=== PATIENT | male | born 1970 | race African-American/Black ===

== ENCOUNTER 2022-06-27 13:12 | Outpatient (REF) | payer OTHER, SELFPAY ==
[2022-06-27 14:58] LABS: Estimated Glomerular Filt Rate > 60; Uric Acid 5.3 mg/dL (3.4-7.0)
== END 2022-06-27 13:13 | disposition home or self-care (01) ==
LOC: HO.LAB 13:12
PROVIDERS: PCP Internal Medicine; Visit Provider Internal Medicine Rheumatology
DX: M10.9 Gout, unspecified (principal); Z79.899 Other long term (current) drug therapy
CPT/HCPCS: 36415; 82565; 84550

== ENCOUNTER 2023-10-19 14:26 | Outpatient (AMB) | payer OTHER, SELFPAY ==
--- NOTE | 2023-10-19 14:28 | MHC.OFFVIS ---
Vital Signs 10/19/23 14:29 Height 6 ft 1.5 in Weight 262 lb 5.601 oz BMI 34.1 BP 126/64 Blood Pressure Location Rt brachial Position Sitting Intake Visit Reasons: Gout Intake Note: Patient last seen 06/27/[address] Connelly, presents today for follow up. Allergies shellfish Allergy (Unknown, Uncoded 10/19/23 14:32) unknown Medication List - Last Reconciled 10/19/23 by Eliseo Prasad MD albuterol sulfate 90 mcg/actuation inhalation allopurinol 200 mg (2 x 100 mg) PO DAILY blood sugar diagnostic (FreeStyle Lite Strips) As directed empagliflozin (Jardiance) 10 mg PO DAILY metformin 1,000 mg PO BID simvastatin 20 mg PO BEDTIME sitagliptin phosphate (Januvia) 50 mg PO DAILY HPI Comments Details: This is a 53-year-old male with gout who presents for follow-up. Was last seen by Dr. Connelly 06/2022. He remains on allopurinol 200 mg daily. States that he has not had any clear gout gout flare-ups for years. States that when he is in bed he sometimes feels that some achy pain is coming up on him, usually in his right big toe. He denies any history of kidney stones. [facility] Medical History Exercise-induced asthma Hyperlipemia Gout Obesity Diabetes Surgical History H/O tooth extraction History of appendectomy Family History Father Diabetes Arthritis Mother Hypertension Social History Alcohol intake: current Patient Tobacco Use Status: Never used Tobacco Review of Systems [facility] [place] Reports arthralgias, Denies joint swelling and Reports stiffness Physical Exam Vital Signs: Last Vital Signs BP 126/64 10/19/23 14:29 BMI result Body Mass Index 34.1 Const General: cooperative, healthy appearing and comfortable Nutritional Appearance: obese Orientation/consciousness: patient oriented x3 Limitations: no limitations HEENT Head: Yes normocephalic and Yes atraumatic Mouth: moist mucous membranes Resp Effort & Inspection: normal respiratory effort and able to speak in complete sentences Skin General skin exam: no rashes or lesions noted Neuro General: patient oriented x3 Extrem Other: Minimal osteoarthritic changes of both hands with subtle Heberden's nodes Nontender to palpation squaring of left 1st CMC joint No active synovitis Normal range of motion elbows and shoulders without pain No knee pain with flexion-extension No ankle swelling or tenderness bilaterally Bilateral significant flat feet Right big toe bunion, nontender to palpation Assessment & Plan Assessment & Plan (1) Gout: Comment: dx 2013 Code(s): M10.9 - Gout, unspecified Category: Medical Qualifiers: Gout site: multiple sites Gout etiology: idiopathic Chronicity: chronic Plan: This is a 53 year old male with gout who presents for follow-up. This is his 1st visit with me. He was last seen by Dr. Connelly 06/2022. Patient has not had any gout flare-ups in years. He remains on allopurinol 200 mg daily. His symptoms today are consistent with osteoarthritis. Continue allopurinol 200 mg daily Check labs in the coming few days to check uric acid level Labs before next visit in 1 year. Plan I spent 16 minutes reviewing patient's chart, evaluating patient, ordering diagnostic workup, counseling patient and documenting in the chart Orders: Orders Basic Metabolic Panel Today M10.9 - Gout, unspecified Uric Acid Today M10.9 - Gout, unspecified Basic Metabolic Panel 1 Year M10.9 - Gout, unspecified Uric Acid 1 Year M10.9 - Gout, unspecified Coding Level of Care Code Est Pt Level 3 (94968) Diagnoses Gout M10.9 Gout site: multiple sites Gout etiology: idiopathic Chronicity: chronic
[2023-10-19 14:29] VITALS: BP 126/64; BMI 34.1
== END 2023-10-19 15:10 | disposition home or self-care (01) ==
PROVIDERS: PCP Internal Medicine; Visit Provider Student in an Organized Health Care Education/Training Program
DX: M10.9 Gout, unspecified (principal)
CPT/HCPCS: 99213

== ENCOUNTER 2023-10-19 14:26 | Outpatient (REF) | payer OTHER, SELFPAY ==
[2023-10-19 15:41] LABS: Anion Gap 13 (12-20); Blood Urea Nitrogen 18 mg/dL (9-16); Calcium 10.3 mg/dL (8.4-10.2); Carbon Dioxide 29 mmol/L (22-29); Chloride 102 mmol/L (96-108); Estimated Glomerular Filt Rate > 60; Glucose Random 134 mg/dL (60-115); Potassium 4.2 mmol/L (3.3-5.1); Sodium 140 mmol/L (135-145); Uric Acid 5.3 mg/dL (3.4-7.0)
== END 2023-10-19 14:27 | disposition home or self-care (01) ==
LOC: HO.LAB 14:26
PROVIDERS: PCP Internal Medicine; Visit Provider Student in an Organized Health Care Education/Training Program
DX: M10.9 Gout, unspecified (principal)
CPT/HCPCS: 36415; 80048; 84550